=== PATIENT | male | born 1960 | race Caucasian/White ===

== ENCOUNTER → 2018-06-28 19:34 | Outpatient (CLI) | payer MEDICAID, SELFPAY ==
[2018-06-28 20:18] LABS: Basophils # 0.1 K/mm3 (0-0.2); Basophils % 0.8 % (0.1-2.0); Eosinophils # 0.1 K/mm3 (0.0-0.4); Eosinophils % 1.1 % (0.1-12.0); Hematocrit 51.5 % (42.0-52.0); Hemoglobin 17.1 g/dL (14.1-18.0); Lymphocytes # 1.8 K/mm3 (0.7-4.5); Lymphocytes % 20.8 % (10-50); Mean Corpuscular HGB Conc 33.2 g/dL (31.8-35.4); Mean Corpuscular Hemoglobin 30.1 pg (27.0-31.2); Mean Corpuscular Volume 90.5 fl (80-94); Mean Platelet Volume 9.7 fl (7.4-10.4); Monocytes # 0.5 K/mm3 (0.1-1.0); Monocytes % 5.7 % (1.7-9.3); Neutrophils # 6.3 K/mm3 (1.8-7.8); Neutrophils % 71.6 % (37.0-80.0); Platelet Count 187 K/mm3 (142-424); Red Blood Count 5.69 M/mm3 (4.60-6.20); Red Cell Distribution Width 13.7 % (11.5-17.5); White Blood Count 8.8 K/mm3 (4.8-10.8)
[2018-06-28 20:39] LABS: Alanine Aminotransferase 45 U/L (12-78); Albumin Level 4.5 gm/dL (3.4-5.0); Albumin/Globulin Ratio 1.3 (1.1-1.8); Alkaline Phosphatase 95 U/L (46-116); Anion Gap 13.1 mEq/L (5-15); Aspartate Amino Transferase 16 U/L (15-37); Bilirubin,Total 0.5 mg/dL (0.2-1.0); Blood Urea Nitrogen 16 mg/dL (7-18); Calcium 9.3 mg/dL (8.5-10.1); Carbon Dioxide 28 mmol/L (21.0-32.0); Chloride 104 mmol/L (98-107); Chol/HDL Ratio 5.3 (1-3.5); Cholesterol 184 mg/dL (140-200); Creatinine,Serum 0.91 mg/dL (0.70-1.30); Estimated Glomerular Filt Rate 86 ml/min (>60); GFR (African American) 104 ML/MIN (>60); Globulin 3.6 gm/dl (1.3-3.2); Glucose 150 mg/dL (74-106); HDL Cholesterol 35 mg/dL (27-67); LDL Cholesterol 121 mg/dL (0-130); Potassium 4.1 mmoL/L (3.5-5.1); Sodium 141 mmol/L (136-145); T4 (Thyroxine) 9.1 ug/dl (4.7-13.3); Thyroid Stimulating Hormone 1.61 uIU/ml (0.358-3.740); Total Protein,Serum 8.1 gm/dL (6.4-8.2); Triglycerides 140 mg/dL (30-200); VLDL Cholesterol 28 mg/dL (0-40)
[2018-06-30 12:27] LABS: PSA, Free 0.09 ng/mL; Prostate Specific Ag 0.3 ng/mL (0.0-4.0); Vitamin D 25 Hydroxy 14.7 ng/mL (30.0-100.0)
== END ==
PROVIDERS: Visit Provider Physician Assistant
DX: Z00.00 Encounter for general adult medical examination without abnormal findings (principal); R73.9 Hyperglycemia, unspecified
CPT/HCPCS: 80053; 80061; 82652; 83036; 84153; 84154; 84436; 84443; 85025

== ENCOUNTER → 2018-07-25 09:32 | Outpatient (CLI) | payer MEDICAID, SELFPAY | PROVIDERS: PCP Physician Assistant; Visit Provider Physician Assistant | DX: Z71.3 Dietary counseling and surveillance (principal); E11.9 Type 2 diabetes mellitus without complications | CPT/HCPCS: 97802 ==

== ENCOUNTER → 2019-01-04 09:11 | Outpatient (CLI) | payer MEDICAID, SELFPAY ==
--- NOTE | 2019-01-04 09:19 | XR_ITS ---
PROCEDURE: XR ELBOW RT MIN 3V CLINICAL INDICATION: Right elbow pain COMPARISON: No exams were available for comparison FINDINGS: No fracture or dislocation. No lytic or blastic change. There is normal mineralization. Soft tissue calcification is present at both the lateral and medial epicondylar region and could be related to prior ligamentous injury. Enthesophyte is present at the olecranon process. There is some soft tissue prominence at that region as well Other findings:None. IMPRESSION: Soft tissue calcification at the medial and lateral epicondylar region which may be due to old ligamentous injury Prominent enthesophyte at the olecranon Dictated by: Darryl Thedoore MD 01/04/2019 10:22 Signed by: <Electronically signed by Darryl Theodore MD in [place]> 01/04/2019 10:22
[2019-01-04 13:56] LABS: Basophils # 0.1 K/mm3 (0-0.2); Basophils % 0.8 % (0.1-2.0); Eosinophils # 0.1 K/mm3 (0.0-0.4); Eosinophils % 1.9 % (0.1-12.0); Hematocrit 47.1 % (42.0-52.0); Hemoglobin 15.3 g/dL (14.1-18.0); Lymphocytes # 1.5 K/mm3 (0.7-4.5); Lymphocytes % 19.5 % (10-50); Mean Corpuscular HGB Conc 32.5 g/dL (31.8-35.4); Mean Corpuscular Hemoglobin 29.8 pg (27.0-31.2); Mean Corpuscular Volume 91.6 fl (80-94); Mean Platelet Volume 9.4 fl (7.4-10.4); Monocytes # 0.4 K/mm3 (0.1-1.0); Monocytes % 4.5 % (1.7-9.3); Neutrophils # 5.7 K/mm3 (1.8-7.8); Neutrophils % 73.2 % (37.0-80.0); Platelet Count 195 K/mm3 (142-424); Red Blood Count 5.14 M/mm3 (4.60-6.20); Red Cell Distribution Width 13.2 % (11.5-17.5); White Blood Count 7.7 K/mm3 (4.8-10.8)
[2019-01-04 14:16] LABS: Alanine Aminotransferase 40 U/L (12-78); Albumin Level 4.3 gm/dL (3.4-5.0); Albumin/Globulin Ratio 1.4 (1.1-1.8); Alkaline Phosphatase 100 U/L (46-116); Anion Gap 12.2 mEq/L (5-15); Aspartate Amino Transferase 19 U/L (15-37); Bilirubin,Total 0.4 mg/dL (0.2-1.0); Blood Urea Nitrogen 13 mg/dL (7-18); Calcium 9.1 mg/dL (8.5-10.1); Carbon Dioxide 26 mmol/L (21.0-32.0); Chloride 104 mmol/L (98-107); Chol/HDL Ratio 3.8 (1-3.5); Cholesterol 124 mg/dL (140-200); Creatinine,Serum 0.86 mg/dL (0.70-1.30); Estimated Glomerular Filt Rate 92 ml/min (>60); GFR (African American) 111 ML/MIN (>60); Glucose 251 mg/dL (74-106); HDL Cholesterol 33 mg/dL (27-67); LDL Cholesterol 71 mg/dL (0-130); Potassium 4.2 mmoL/L (3.5-5.1); Sodium 138 mmol/L (136-145); T4 (Thyroxine) 8.8 ug/dl (4.7-13.3); Thyroid Stimulating Hormone 1.14 uIU/ml (0.358-3.740); Total Protein,Serum 7.3 gm/dL (6.4-8.2); Triglycerides 100 mg/dL (30-200); VLDL Cholesterol 20 mg/dL (0-40)
[2019-01-04 15:37] LABS: Hemoglobin A1C 7.4 % (0.0-7.0)
[2019-01-05 09:51] LABS: Vitamin D 25 Hydroxy 26.4 ng/mL (30.0-100.0)
== END ==
PROVIDERS: PCP Physician Assistant; Visit Provider Physician Assistant
DX: M25.521 Pain in right elbow (principal); E11.9 Type 2 diabetes mellitus without complications; E55.9 Vitamin D deficiency, unspecified; Z79.84 Long term (current) use of oral hypoglycemic drugs
CPT/HCPCS: 73080; 80053; 80061; 82652; 83036; 84436; 84443; 85025

== ENCOUNTER → 2019-03-13 17:18 | Outpatient (CLI) | payer MEDICAID, SELFPAY | PROVIDERS: Visit Provider Physician Assistant | DX: E11.9 Type 2 diabetes mellitus without complications (principal); Z79.84 Long term (current) use of oral hypoglycemic drugs | CPT/HCPCS: 82043 ==

== ENCOUNTER → 2019-11-16 13:03 | Outpatient (CLI) | payer MEDICAID, SELFPAY ==
[2019-11-16 17:18] LABS: Creatinine,Urine Random 107 mg/dL (Not Estab.)
[2019-11-16 17:20] LABS: Microalbumin/Creatinine Ratio 16.6
== END ==
PROVIDERS: Visit Provider Family Medicine
DX: E11.9 Type 2 diabetes mellitus without complications (principal); Z79.84 Long term (current) use of oral hypoglycemic drugs
CPT/HCPCS: 82043; 82570; 83036

== ENCOUNTER → 2020-03-12 14:51 | Outpatient (CLI) | payer MEDICAID, SELFPAY ==
[2020-03-12 15:26] LABS: Basophils # 0.1 K/mm3 (0-0.2); Basophils % 0.7 % (0.1-2.0); Eosinophils # 0.1 K/mm3 (0.0-0.4); Eosinophils % 1.5 % (0.1-12.0); Hematocrit 44.7 % (42.0-52.0); Hemoglobin 15.3 g/dL (14.1-18.0); Lymphocytes # 1.9 K/mm3 (0.7-4.5); Lymphocytes % 22.2 % (10-50); Mean Corpuscular HGB Conc 34.3 g/dL (31.8-35.4); Mean Corpuscular Hemoglobin 31.2 pg (27.0-31.2); Mean Corpuscular Volume 91.1 fl (80-94); Mean Platelet Volume 9.8 fl (7.4-10.4); Monocytes # 0.5 K/mm3 (0.1-1.0); Monocytes % 6.1 % (1.7-9.3); Neutrophils # 5.9 K/mm3 (1.8-7.8); Neutrophils % 69.5 % (37.0-80.0); Platelet Count 202 K/mm3 (142-424); Red Blood Count 4.91 M/mm3 (4.60-6.20); Red Cell Distribution Width 13.6 % (11.5-17.5); White Blood Count 8.5 K/mm3 (4.8-10.8)
[2020-03-12 15:41] LABS: Hemoglobin A1C 6.4 % (4.0-6.0)
[2020-03-12 15:54] LABS: Alanine Aminotransferase 26 U/L (12-78); Albumin Level 4.8 g/dl (3.5-5.0); Albumin/Globulin Ratio 1.7 (1.1-1.8); Alkaline Phosphatase 93 U/L (38-126); Anion Gap 16.1 mEq/L (5-15); Aspartate Amino Transferase 27 U/L (17-59); Bilirubin,Total 0.5 mg/dl (0.2-1.3); Blood Urea Nitrogen 17 mg/dl (9-20); Calcium 9.7 mg/dl (8.4-10.2); Carbon Dioxide 24 mmol/L (22.0-30.0); Chloride 106 mmol/L (98-107); Chol/HDL Ratio 4.2 (1-3.5); Cholesterol 150 mg/dl (140-200); Estimated Glomerular Filt Rate 116 ml/min (>60); GFR (African American) 141 ML/MIN (>60); Globulin 2.8 g/dL (1.3-3.2); Glucose 125 mg/dl (74-100); HDL Cholesterol 36 mg/dl (40-60); Potassium 4.1 mmoL/L (3.5-5.1); Sodium 142 mmol/L (136-145); Total Protein,Serum 7.6 g/dl (6.3-8.2); Triglycerides 153 mg/dl (30-150); VLDL Cholesterol 31 mg/dL (0-40)
[2020-03-12 16:05] LABS: Direct LDL Cholesterol 94.25 mg/dL (100-129)
[2020-03-12 16:12] LABS: T4 (Thyroxine) 7.6 ug/dl (5.53-11.0)
[2020-03-12 16:26] LABS: Thyroid Stimulating Hormone 1.46 uIU/mL (0.465-4.68)
[2020-03-14 10:31] LABS: PSA, Free 0.11 ng/mL; Prostate Specific Ag 0.4 ng/mL (0.0-4.0)
== END ==
PROVIDERS: Visit Provider Physician Assistant
DX: E11.65 Type 2 diabetes mellitus with hyperglycemia (principal); E55.9 Vitamin D deficiency, unspecified; E78.5 Hyperlipidemia, unspecified; I10 Essential (primary) hypertension; Z79.84 Long term (current) use of oral hypoglycemic drugs
CPT/HCPCS: 80053; 80061; 83036; 84153; 84154; 84436; 84443; 85025

== ENCOUNTER → 2020-06-12 17:46 | Outpatient (CLI) | payer MEDICAID, SELFPAY ==
[2020-06-12 18:17] LABS: Basophils # 0.1 K/mm3 (0-0.2); Eosinophils # 0.1 K/mm3 (0.0-0.4); Hematocrit 47.5 % (42.0-52.0); Hemoglobin 15.5 g/dL (14.1-18.0); Lymphocytes # 1.5 K/mm3 (0.7-4.5); Lymphocytes % 22.4 % (10-50); Mean Corpuscular HGB Conc 32.6 g/dL (31.8-35.4); Mean Corpuscular Hemoglobin 29.4 pg (27.0-31.2); Mean Corpuscular Volume 90.4 fl (80-94); Mean Platelet Volume 9.4 fl (7.4-10.4); Monocytes # 0.7 K/mm3 (0.1-1.0); Monocytes % 10.8 % (1.7-9.3); Neutrophils # 4.3 K/mm3 (1.8-7.8); Neutrophils % 64.8 % (37.0-80.0); Platelet Count 182 K/mm3 (142-424); Red Blood Count 5.26 M/mm3 (4.60-6.20); Red Cell Distribution Width 12.9 % (11.5-17.5); White Blood Count 6.6 K/mm3 (4.8-10.8)
[2020-06-12 18:22] LABS: Alanine Aminotransferase 38 U/L (12-78); Albumin Level 5.1 g/dl (3.5-5.0); Albumin/Globulin Ratio 1.5 (1.1-1.8); Alkaline Phosphatase 96 U/L (38-126); Anion Gap 17.3 mEq/L (5-15); Aspartate Amino Transferase 35 U/L (17-59); Bilirubin,Total 0.5 mg/dl (0.2-1.3); Blood Urea Nitrogen 15 mg/dl (9-20); Calcium 9.9 mg/dl (8.4-10.2); Carbon Dioxide 26 mmol/L (22.0-30.0); Chloride 99 mmol/L (98-107); Chol/HDL Ratio 5.1 (1-3.5); Cholesterol 152 mg/dl (140-200); Estimated Glomerular Filt Rate 99 ml/min (>60); GFR (African American) 120 ML/MIN (>60); Globulin 3.3 g/dL (1.3-3.2); Glucose 262 mg/dl (74-100); HDL Cholesterol 30 mg/dl (40-60); Potassium 4.3 mmoL/L (3.5-5.1); Sodium 138 mmol/L (136-145); Total Protein,Serum 8.4 g/dl (6.3-8.2); Triglycerides 269 mg/dl (30-150); VLDL Cholesterol 54 mg/dL (0-40)
[2020-06-12 18:34] LABS: Direct LDL Cholesterol 90.76 mg/dL (100-129)
[2020-06-12 18:39] LABS: 25-OH Vitamin D, Total 41.6 ng/mL (30-100)
[2020-06-12 18:44] LABS: Hemoglobin A1C 7.4 % (4.0-6.0)
[2020-06-12 18:53] LABS: Thyroid Stimulating Hormone 1.18 uIU/mL (0.465-4.68)
== END ==
PROVIDERS: Visit Provider Physician Assistant
DX: E11.9 Type 2 diabetes mellitus without complications (principal); E55.9 Vitamin D deficiency, unspecified; I10 Essential (primary) hypertension; Z79.84 Long term (current) use of oral hypoglycemic drugs
CPT/HCPCS: 80053; 80061; 82043; 82306; 83036; 84439; 84443; 85025

== ENCOUNTER → 2020-07-19 09:13 | Outpatient (CLI) | payer MEDICAID, SELFPAY ==
[2020-07-19 09:16] LABS: Microscopic, Urine URINE MICROSCOPIC (MICROSCOPIC)
[2020-07-19 09:30] LABS: Basophils # 0.1 K/mm3 (0-0.2); Basophils % 0.7 % (0.1-2.0); Eosinophils # 0.2 K/mm3 (0.0-0.4); Hematocrit 45.1 % (42.0-52.0); Lymphocytes # 1.6 K/mm3 (0.7-4.5); Lymphocytes % 20.5 % (10-50); Mean Corpuscular HGB Conc 33.2 g/dL (31.8-35.4); Mean Corpuscular Hemoglobin 29.9 pg (27.0-31.2); Mean Corpuscular Volume 89.9 fl (80-94); Mean Platelet Volume 8.6 fl (7.4-10.4); Monocytes # 0.4 K/mm3 (0.1-1.0); Monocytes % 5.5 % (1.7-9.3); Neutrophils # 5.5 K/mm3 (1.8-7.8); Neutrophils % 71.4 % (37.0-80.0); Platelet Count 159 K/mm3 (142-424); Red Blood Count 5.02 M/mm3 (4.60-6.20); Red Cell Distribution Width 13.6 % (11.5-17.5); White Blood Count 7.8 K/mm3 (4.8-10.8)
[2020-07-19 10:25] LABS: Appearance,Urine CLEAR (Clear); Bilirubin,Urine Negative (Negative); Blood, Urine Negative (Negative); Color,Urine YELLOW (Yellow); Glucose,Urine (UA) 2+ (Negative); Ketones,Urine Negative (Negative); Leukocyte Esterase,Urine Negative (Negative); Nitrate,Urine Negative (Negative); PH,Urine 5.5 (5.0-8.5); Protein,Urine Negative (Negative); Specific Gravity, Urine >= 1.030 (1.005-1.030); Urobilinogen,Urine 0.2 EU/dl (0.2)
[2020-07-19 10:35] LABS: Creatinine,Urine Random 177 mg/dL (Not Estab.)
[2020-07-19 10:48] LABS: Albumin Level 4.7 g/dl (3.5-5.0); Anion Gap 12.7 mEq/L (5-15); Blood Urea Nitrogen 20 mg/dl (9-20); Calcium 9.5 mg/dl (8.4-10.2); Carbon Dioxide 26 mmol/L (22.0-30.0); Chloride 105 mmol/L (98-107); Estimated Glomerular Filt Rate 99 ml/min (>60); GFR (African American) 120 ML/MIN (>60); Glucose 154 mg/dl (74-100); Phosphorous 2.9 mg/dl (2.5-4.5); Potassium 4.7 mmoL/L (3.5-5.1); Sodium 139 mmol/L (136-145)
[2020-07-19 10:59] LABS: Intact Parathyroid Hormone 26.6 pg/mL (7.5-53.5)
[2020-07-19 11:05] LABS: 25-OH Vitamin D, Total 50.1 ng/mL (30-100)
== END ==
PROVIDERS: Visit Provider Internal Medicine Nephrology
DX: R80.9 Proteinuria, unspecified (principal); Z68.26 Body mass index [BMI] 26.0-26.9, adult
CPT/HCPCS: 36415; 80069; 81001; 82306; 82570; 83970; 84155; 85025

== ENCOUNTER → 2021-02-13 12:25 | Outpatient (CLI) | payer MEDICAID, SELFPAY ==
[2021-02-13 13:34] LABS: Creatinine,Urine Random 161 mg/dL (Not Estab.)
[2021-02-13 13:37] LABS: Microalbumin/Creatinine Ratio 11.3
[2021-02-13 13:41] LABS: Albumin Level 4.4 g/dl (3.5-5.0); Anion Gap 11.1 mEq/L (5-15); Blood Urea Nitrogen 16 mg/dl (9-20); Calcium 9.1 mg/dl (8.4-10.2); Carbon Dioxide 26 mmol/L (22.0-30.0); Chloride 107 mmol/L (98-107); Estimated Glomerular Filt Rate 138 ml/min (>60); GFR (African American) 167 ML/MIN (>60); Glucose 178 mg/dl (74-100); Potassium 4.1 mmoL/L (3.5-5.1); Sodium 140 mmol/L (136-145)
== END ==
PROVIDERS: Visit Provider Internal Medicine Nephrology
DX: R80.9 Proteinuria, unspecified (principal)
CPT/HCPCS: 36415; 80069; 82043; 82570

== ENCOUNTER → 2021-03-02 14:33 | Outpatient (POV) | payer MEDICAID, SELFPAY | PROVIDERS: Visit Provider Internal Medicine Nephrology | DX: Z00.00 Encounter for general adult medical examination without abnormal findings (principal) ==

== ENCOUNTER → 2021-04-29 12:54 | Outpatient (CLI) | payer MEDICAID, SELFPAY ==
--- NOTE | 2021-04-29 12:58 | CT_ITS ---
PROCEDURE: CT HEAD/BRAIN WO CON CLINICAL INDICATION: new onset headaches COMPARISON: No exams were available for comparison TECHNIQUE: Axial images obtained. All CT scans at the facility use one or more dose reduction, viz: automated exposure control, ma/kV adjustment per patient size (including targeted exams where dose is matched to indication, i.e. head), or iterative reconstruction technique. FINDINGS: No midline shift, mass effect, intracranial hemorrhage, hydrocephalus, or extra-axial fluid collection is evident. The calvarium has an unremarkable appearance. No mastoid effusion. Minimal mucosal thickening ethmoid sinuses. No sinus air-fluid level. Mild calcification of the vertebral arteries. IMPRESSION: No acute intracranial finding Dictated by: Darryl Theodore MD 04/29/2021 16:37 Darryl Theodore MD in [place] 04/29/2021 16:37
== END ==
PROVIDERS: PCP Physician Assistant; Visit Provider Physician Assistant
DX: R51.9 Headache, unspecified (principal)
CPT/HCPCS: 70450

== ENCOUNTER → 2022-03-30 13:40 | Outpatient (CLI) | payer MEDICAID, SELFPAY ==
[2022-03-30 20:08] LABS: Basophils # 0.1 K/mm3 (0-0.2); Basophils % 0.7 % (0.1-2.0); Eosinophils # 0.1 K/mm3 (0.0-0.4); Eosinophils % 0.7 % (0.1-12.0); Hematocrit 49.3 % (42.0-52.0); Hemoglobin 16.4 g/dL (14.1-18.0); Lymphocytes # 1.8 K/mm3 (0.7-4.5); Lymphocytes % 16.5 % (10-50); Mean Corpuscular HGB Conc 33.3 g/dL (31.8-35.4); Mean Corpuscular Hemoglobin 31.4 pg (27.0-31.2); Mean Corpuscular Volume 94.3 fl (80-94); Mean Platelet Volume 10.2 fl (7.4-10.4); Monocytes # 0.5 K/mm3 (0.1-1.0); Monocytes % 4.6 % (1.7-9.3); Neutrophils # 8.3 K/mm3 (1.8-7.8); Neutrophils % 77.5 % (37.0-80.0); Platelet Count 206 K/mm3 (142-424); Red Blood Count 5.23 M/mm3 (4.60-6.20); Red Cell Distribution Width 14.1 % (11.5-17.5); White Blood Count 10.7 K/mm3 (4.8-10.8)
[2022-03-30 20:18] LABS: Alanine Aminotransferase 37 U/L (12-78); Albumin Level 4.8 g/dl (3.5-5.0); Albumin/Globulin Ratio 1.8 (1.1-1.8); Alkaline Phosphatase 111 U/L (38-126); Aspartate Amino Transferase 29 U/L (17-59); Bilirubin,Total 0.6 mg/dl (0.2-1.3); Blood Urea Nitrogen 22 mg/dl (9-20); Calcium 10.3 mg/dl (8.4-10.2); Carbon Dioxide 24 mmol/L (22.0-30.0); Chloride 99 mmol/L (98-107); Chol/HDL Ratio 5.2 (1-3.5); Cholesterol 166 mg/dl (140-200); Estimated Glomerular Filt Rate 115 ml/min (>60); GFR (African American) 140 ML/MIN (>60); Globulin 2.7 g/dL (1.3-3.2); Glucose 233 mg/dl (74-100); HDL Cholesterol 32 mg/dl (40-60); Sodium 139 mmol/L (136-145); Total Protein,Serum 7.5 g/dl (6.3-8.2); Triglycerides 225 mg/dl (30-150); VLDL Cholesterol 45 mg/dL (0-40)
[2022-03-30 20:30] LABS: Direct LDL Cholesterol 94.59 mg/dL (100-129)
[2022-03-30 20:36] LABS: 25-OH Vitamin D, Total 43.5 ng/mL (30-100)
[2022-03-30 20:50] LABS: Prostate Specific Ag Screen 0.4 ng/ml (0.0-4.0); Thyroid Stimulating Hormone 1.65 uIU/mL (0.465-4.68)
== END ==
PROVIDERS: PCP Student in an Organized Health Care Education/Training Program; Visit Provider Student in an Organized Health Care Education/Training Program
DX: E11.65 Type 2 diabetes mellitus with hyperglycemia (principal); R53.83 Other fatigue; I10 Essential (primary) hypertension; Z12.5 Encounter for screening for malignant neoplasm of prostate; Z79.84 Long term (current) use of oral hypoglycemic drugs
CPT/HCPCS: 80053; 80061; 82306; 83036; 84443; 85025; G0103

== ENCOUNTER → 2022-04-13 14:20 | Outpatient (CLI) | payer MEDICAID, SELFPAY ==
[2022-04-13 15:26] VITALS: BMI 27.1
== END ==
PROVIDERS: PCP Physician Assistant; Visit Provider Student in an Organized Health Care Education/Training Program
DX: Z71.3 Dietary counseling and surveillance (principal); E11.9 Type 2 diabetes mellitus without complications
CPT/HCPCS: 97802

== ENCOUNTER → 2022-08-10 14:11 | Outpatient (CLI) | payer MEDICAID, SELFPAY ==
[2022-08-10 19:57] LABS: Basophils # 0.1 K/mm3 (0-0.2); Basophils % 0.7 % (0.1-2.0); Eosinophils # 0.1 K/mm3 (0.0-0.4); Eosinophils % 0.9 % (0.1-12.0); Hematocrit 46.7 % (42.0-52.0); Hemoglobin 15.1 g/dL (14.1-18.0); Lymphocytes # 1.4 K/mm3 (0.7-4.5); Lymphocytes % 13.8 % (10-50); Mean Corpuscular HGB Conc 32.4 g/dL (31.8-35.4); Mean Corpuscular Hemoglobin 30.9 pg (27.0-31.2); Mean Corpuscular Volume 95.4 fl (80-94); Mean Platelet Volume 10.6 fl (7.4-10.4); Monocytes # 0.5 K/mm3 (0.1-1.0); Monocytes % 5.2 % (1.7-9.3); Neutrophils # 7.9 K/mm3 (1.8-7.8); Neutrophils % 79.4 % (37.0-80.0); Platelet Count 248 K/mm3 (142-424); Red Cell Distribution Width 13.9 % (11.5-17.5); White Blood Count 9.9 K/mm3 (4.8-10.8)
[2022-08-10 20:01] LABS: Alanine Aminotransferase 43 U/L (12-78); Albumin Level 4.8 g/dl (3.5-5.0); Albumin/Globulin Ratio 1.8 (1.1-1.8); Alkaline Phosphatase 83 U/L (38-126); Anion Gap 15.3 mEq/L (5-15); Aspartate Amino Transferase 46 U/L (17-59); Bilirubin,Total 0.6 mg/dl (0.2-1.3); Blood Urea Nitrogen 17 mg/dl (9-20); Calcium 9.5 mg/dl (8.4-10.2); Carbon Dioxide 24 mmol/L (22.0-30.0); Chloride 104 mmol/L (98-107); Chol/HDL Ratio 4.4 (1-3.5); Cholesterol 141 mg/dl (140-200); Estimated Glomerular Filt Rate 99 ml/min (>60); GFR (African American) 119 ML/MIN (>60); Globulin 2.6 g/dL (1.3-3.2); Glucose 196 mg/dl (74-100); HDL Cholesterol 32 mg/dl (40-60); Potassium 4.3 mmoL/L (3.5-5.1); Sodium 139 mmol/L (136-145); Total Protein,Serum 7.4 g/dl (6.3-8.2); Triglycerides 243 mg/dl (30-150); VLDL Cholesterol 49 mg/dL (0-40)
[2022-08-10 20:11] LABS: Creatine Kinase MB 1.5 ng/ml (0.0-2.03)
[2022-08-10 20:14] LABS: Direct LDL Cholesterol 84.53 mg/dL (100-129)
[2022-08-10 20:18] LABS: 25-OH Vitamin D, Total 47.2 ng/mL (30-100)
[2022-08-10 20:33] LABS: Thyroid Stimulating Hormone 1.31 uIU/mL (0.465-4.68)
[2022-08-10 20:36] LABS: Ferritin 227 ng/ml (17.9-464)
[2022-08-10 20:56] LABS: Vitamin B12 183 pg/mL (239-931)
[2022-08-11 08:58] LABS: Hemoglobin A1C 7.8 % (4.0-6.0)
== END ==
PROVIDERS: PCP Physician Assistant; Visit Provider Physician Assistant
DX: E11.9 Type 2 diabetes mellitus without complications (principal); Z79.84 Long term (current) use of oral hypoglycemic drugs
CPT/HCPCS: 80053; 80061; 82306; 82553; 82607; 82728; 83036; 84443; 85025

== ENCOUNTER → 2022-09-17 12:46 | Outpatient (CLI) | payer MEDICAID, SELFPAY ==
--- NOTE | 2022-09-17 12:47 | MR_ITS ---
FINAL REPORT CLINICAL HISTORY: left lumbar radiculopathy lower back pain with left leg numbness , burning, and tingling x 6 months COMPARISON: None FINDINGS: Multiplanar MR imaging of the lumbar spine was performed without contrast. On the sagittal T2-weighted images, there is abnormal decreased signal at L4-5. The vertebrae are of normal height. The vertebral alignment is normal. L1-2: There is no significant canal stenosis or neural foraminal narrowing. L2-3: There is no significant canal stenosis or neural foraminal narrowing. L3-4: There is no significant canal stenosis or neural foraminal narrowing. L4-5: Mild diffuse disc bulge. Endplate hypertrophy. Mild spinal canal compromise. Moderate to high-grade left and moderate right neural foraminal narrowing. L5-S1: There is no significant canal stenosis or neural foraminal narrowing. IMPRESSION: Diffuse disc bulge at L4-5 with moderate to high-grade left neural foraminal compromise. Reviewed, Interpreted and Dictated by Mark Phillips MD Transcribed by Cori Cruz Authenticated and [facility]
== END ==
PROVIDERS: PCP Physician Assistant; Visit Provider Physician Assistant
DX: M54.50 Low back pain, unspecified (principal); M54.16 Radiculopathy, lumbar region
CPT/HCPCS: 72148; 76376

== ENCOUNTER 2022-09-29 08:30 | Emergency (ER) | payer MEDICAID, SELFPAY ==
[2022-09-29 08:31] VITALS: BP 145/92; PULSE 76; RESP 17; TEMP 37.2; O2SAT 97; BMI 24.3
--- NOTE | 2022-09-29 08:51 | EXP.UTC ---
Discharge Plan Disposition Patient Disposition: Home, Self-Care Condition: Good Prescriptions Prescriptions: New methylprednisolone [Medrol (Daljit)] 4 mg tablets,dose pack See Rx Instructions .Route .COMPLEX 6 Days Qty: 21 0RF Rx Instructions: taper pack; No Action Ubrelvy 50 mg tablet 50 mg PO ONCE PRN (Reason: migraine headache) Qty: 10 0RF Rx Instructions: Once at onset of headache methylprednisolone [Medrol (Daljit)] 4 mg tablets,dose pack 4 mg PO PER PKG DIR 6 Days Qty: 21 0RF (DME) blood-glucose meter Kit 0 unit .Route .MEDSUPPLY Qty: 1 0RF Rx Instructions: As directed (DME) Acti-Markell Lancets 23 gauge misc See Rx Instructions .ROUTE .MEDSUPPLY Qty: 100 2RF Rx Instructions: As directed losartan 50 mg tablet 50 mg PO DAILY Qty: 90 3RF (DME) OneTouch Ultra Test Strip See Rx Instructions .ROUTE .COMPLEX Qty: 100 3RF Dose Instruction: USE STRIP TO CHECK GLUCOSE TWICE DAILY Rx Instructions: USE STRIP TO CHECK GLUCOSE TWICE DAILY metformin 1,000 mg tablet extended release 24 hr 1,000 mg PO BID Qty: 90 3RF atorvastatin 10 mg tablet See Rx Instructions .ROUTE .COMPLEX Qty: 90 0RF Dose Instruction: TAKE 1 TABLET BY MOUTH ONCE DAILY AT BEDTIME FOR CHOLESTEROL Rx Instructions: TAKE 1 TABLET BY MOUTH ONCE DAILY AT BEDTIME FOR CHOLESTEROL omeprazole 20 mg capsule,delayed release(DR/EC) See Rx Instructions .ROUTE .COMPLEX Qty: 30 0RF Dose Instruction: Take 1 capsule by mouth once daily Rx Instructions: Take 1 capsule by mouth once daily amitriptyline 25 mg tablet See Rx Instructions .ROUTE .COMPLEX Qty: 30 2RF Dose Instruction: TAKE 1 TABLET BY MOUTH ONCE DAILY AT BEDTIME Rx Instructions: TAKE 1 TABLET BY MOUTH ONCE DAILY AT BEDTIME aspirin 81 mg tablet,delayed release (DR/EC) See Rx Instructions .ROUTE .COMPLEX Qty: 90 0RF Dose Instruction: TAKE 1 TABLET BY MOUTH ONCE DAILY FOR PREVENTATIVE Rx Instructions: TAKE 1 TABLET BY MOUTH ONCE DAILY FOR PREVENTATIVE cholecalciferol (vitamin D3) 25 mcg (1,000 unit) capsule See Rx Instructions .ROUTE .COMPLEX Qty: 30 2RF Dose Instruction: Take 1 capsule by mouth once daily Rx Instructions: Take 1 capsule by mouth once daily cyanocobalamin (vitamin B-12) 1,000 mcg/mL solution 1,000 mcg IM QMONTH Qty: 100 2RF Rx Instructions: Pt to inject 1ml daily x7 days. Pt to inject 1ml weekly x4 weeks. Pt to inject 1ml monthly. (DME) BD Integra Syringe 3 mL 25 gauge x 5/8 syringe See Rx Instructions .ROUTE .MEDSUPPLY Qty: 100 1RF Rx Instructions: To use for B-12 injection Januvia 100 mg tablet 100 mg PO DAILY Qty: 90 3RF glipizide 5 mg tablet extended release 24hr See Rx Instructions .ROUTE .COMPLEX Qty: 60 0RF Dose Instruction: Take 2 tablets by mouth once daily Rx Instructions: Take 2 tablets by mouth once daily ergocalciferol (vitamin D2) 1,250 mcg (50,000 unit) capsule See Rx Instructions .ROUTE .COMPLEX Qty: 14 0RF Dose Instruction: Take 1 capsule by mouth once a week Rx Instructions: Take 1 capsule by mouth once a week tamsulosin 0.4 mg capsule See Rx Instructions .ROUTE .COMPLEX Qty: 60 0RF Dose Instruction: TAKE 1 CAPSULE BY MOUTH TWICE DAILY FOR PROSTATE Rx Instructions: TAKE 1 CAPSULE BY MOUTH TWICE DAILY FOR PROSTATE (DME) blood sugar diagnostic 1 EACH strip 0 % .Route .MEDSUPPLY Rx Instructions: As directed Referrals Follow up/Referrals: Sophia Cuadra PA [Primary Care Provider] - See instructions Activity Restrictions/Add. Instructions Additional Instructions/Restrictions: Take medrol as prescribed Follow up with your Family Doctor if no improvement or any worsening of symptoms Return if needed Straight to ER if any life threatening symptoms Clinical Impressions Clinical Impressio
[2022-09-29 09:04] VITALS: BP 145/92; PULSE 73; RESP 17; TEMP 37.2
== END 2022-09-29 09:07 | disposition home or self-care (01) ==
PROVIDERS: Emergency Provider Nurse Practitioner; PCP Physician Assistant
DX: M54.32 Sciatica, left side (principal); E11.9 Type 2 diabetes mellitus without complications; I10 Essential (primary) hypertension; Z79.84 Long term (current) use of oral hypoglycemic drugs
CPT/HCPCS: 96372; 99204; 99212; G0463

== ENCOUNTER → 2022-10-21 10:38 | Outpatient (POV) | payer MEDICAID, SELFPAY ==
--- NOTE | 2022-10-21 10:52 | EXP.PAIN.OV ---
HPI Data of Consult Patient: new to practice Consult date: 10/21/22 Requesting Physician: Fozia Patterson APRN Primary Care Provider: EDU Blankenship Consult Narrative Reason for consult: Low back pain, left leg pain History of present illness: Mr. Otto is a 62 year old male who presents today as a new patient. He is a referral from Dr. Riley's office. Today he rates his pain a 7 out of 10. He states his pain is all in his low back with radiating symptoms into his left lower extremity. He does describe this as a aching, throbbing, sharp sensation that is worse with increased activity. He does state this is a severe pain that interferes with his ability to perform activities of daily living such as cooking and cleaning. He states that he also has numbness and tingling into his left extremity. Patient states this has been going on for over 7 months. Patient denies any specific trauma or injury that initially led to this pain symptoms. He states he does work and lifts items on a daily basis and may be related to something he has done there. Patient has tried [id number] medications such as Tylenol and ibuprofen along with heat and ice and topicals with minimal improvement. He has had a steroid injection from urgent care with minimal improvement. Patient is currently in physical therapy and states this has provided some improvement however he continues to have constant pain. Patient denies any surgery history. He is currently prescribed Flexeril 5 mg twice daily and states this does help some. He is not on any scheduled medications. His Markus is [phone]. Has been reviewed and appropriate. CC: Fozia Patterson APRN [facility] Disclaimer: The information contained in this section may have been updated after the patient was seen, as this information can be updated by other users. Medical History Diabetes Hypertension Social History Smoking Status: Never smoker alcohol intake: current substance use type: denies use current occupational status: employed Travel in the last 8 weeks: None caffeine: Yes Review of Systems Review of Systems Review of systems:: pertinent systems reviewed and negative unless documented below Review of systems (narrative): Review of Systems: General: No recent weight changes, no fever, no sleep disturbances Respiratory: No cough, no shortness of air, no recurring pulmonary infections Cardiovascular/peripheral vascular: No chest pain, no palpitations, no edema, no shortness of breath Gastrointestinal: No new onset incontinence, normal bowel movements reported Genitourinary: No new onset incontinence Musculoskeletal: Low back pain, left leg pain Psychiatric: [Normal mood/affect] Neurological: [Denies weakness in extremities], [denies balance issues] Meds Home Medications and Allergies Home Medications Medication Instructions Recorded Confirmed Type blood sugar diagnostic 10/05/18 10/15/22 History blood-glucose meter #1 ea 07/24/20 10/15/22 Rx lancets 23 gauge (Acti-Markell #100 ea 06/03/21 10/15/22 Rx Lancets) ubrogepant 50 mg tablet (Ubrelvy) 50 mg PO ONCE PRN migraine 07/01/21 10/15/22 Rx headache #10 tabs losartan 50 mg tablet 50 mg PO DAILY #90 tabs 10/23/21 10/15/22 Rx blood sugar diagnostic (OneTouch #100 ea 12/04/21 10/15/22 Rx Ultra Test strips) metformin 1,000 mg tablet,extended 1,000 mg PO BID #90 tabs 03/31/22 10/15/22 Rx release 24hr atorvastatin 10 mg tablet See Rx Instructions .Route 05/11/22 10/15/22 Rx .COMPLEX #90 tabs aspirin 81 mg tablet,delayed See Rx Instructions .Route 07/26/22 10/15/22 Rx release .COMPLEX #90 tabs cholecalciferol (vitamin D3) 25 See Rx Instructions .Route 07/28/22 10/15/22 Rx mcg (1,000 unit) capsule .COMPLEX #30 caps cyanocobalamin (vitamin B-12) 1,000 mcg IM QMONTH Vitamin B-12 08/27/22 10/15/22 Rx 1,000 mcg/mL i
[2022-10-21 11:21] VITALS: BP 141/84; PULSE 100; RESP 18; O2SAT 97; BMI 25.7
== END ==
PROVIDERS: PCP Physician Assistant; Visit Provider Nurse Practitioner Family
DX: M51.16 Intervertebral disc disorders with radiculopathy, lumbar region (principal); M79.605 Pain in left leg; M48.00 Spinal stenosis, site unspecified
CPT/HCPCS: 99202; G0463

== ENCOUNTER → 2022-11-10 12:35 | Outpatient (POV) | payer MEDICAID, SELFPAY ==
--- NOTE | 2022-11-10 13:07 | A.OFFVIS_ITS ---
[facility] Pain Management SOAP Note Subjective:: Patient is a pleasant 62-year-old male who presents today for insurance denial of left transforaminal epidural steroid injection. We are currently treating the patient for degenerative disc disease of lumbar spine with lumbar radiculopathy symptoms, spinal stenosis, low back pain, left leg pain. Today he rates his pain a 4 out of 10. Patient denies any new trauma or injury. Patient denies any change to location or type of pain he experiences. He states he continues to have low back pain that radiates down into his left leg. He is still currently in physical therapy and has gone 3 weeks at this point. Patient at our last visit was sent for a neurosurgery referral and he states he has been to see Dr. Baer and at this time is not recommending surgery. Patient is currently managed with Flexeril 5 mg twice a day. Patient is not on any scheduled medications. His Markus is [phone]. Its been reviewed and appropriate. Review of Systems: General: No recent weight changes, no fever, no sleep disturbances Respiratory: No cough, no shortness of air, no recurring pulmonary infections Cardiovascular/peripheral vascular: No chest pain, no palpitations, no edema, no shortness of breath Gastrointestinal: No new onset incontinence, normal bowel movements reported Genitourinary: No new onset incontinence Musculoskeletal: Low back pain, left leg pain Psychiatric: [Normal mood/affect] Neurological: [Denies weakness in extremities], [denies balance issues] Objective:: Physical Exam: General: Alert and oriented x3, no acute distress, pleasant and cooperative Lungs: Respirations even and unlabored, symmetrical chest expansion Eyes: PERRL Musculoskeletal: Flexion and extension of lumbar [spine] somewhat guarded secondary to pain, [antalgic gait noted] Neurological: Speech clear, no gross sensory deficit Assessment:: Degenerative disc disease of lumbar spine with lumbar radiculopathy symptoms, spinal stenosis, low back pain, left leg pain Plan:: Patient continues to have significant pain in his low back with radiating symptoms to his left leg. Patient was denied by insurance for lack of having physical therapy for approximately 6 weeks. Patient is currently in physical therapy and has been going for approximately 3 weeks. Patient will return to clinic in 1 month for reevaluation and at that time we will plan to submit for left transforaminal epidural steroid injection of L4-L5 and L5-S1. Patient has been instructed to contact the clinic with any concerns before the next appointment. Dr. Olivares has reviewed this note and agrees with this plan of care. This note was dictated using voice recognition software and make contain errors or omissions. [facility] Disclaimer: The information contained in this section may have been updated after the patient was seen, as this information can be updated by other users. Medical History Diabetes Hypertension Social History (Updated 10/21/22 @ 11:23 by Mary Adams RN) Smoking Status: Never smoker alcohol intake: current substance use type: denies use current occupational status: employed Travel in the last 8 weeks: None caffeine: Yes
[2022-11-10 13:19] VITALS: BP 122/86; PULSE 119; RESP 20; O2SAT 97; BMI 26.0
== END ==
PROVIDERS: PCP Physician Assistant; Visit Provider Nurse Practitioner Family
DX: M51.16 Intervertebral disc disorders with radiculopathy, lumbar region (principal); M48.061 Spinal stenosis, lumbar region without neurogenic claudication; M54.50 Low back pain, unspecified; M79.605 Pain in left leg
CPT/HCPCS: 99212; G0463

== ENCOUNTER 2022-11-17 08:00 | Outpatient (RCR) | payer MEDICAID, SELFPAY ==
--- NOTE | 2022-10-04 11:04 | HMH.PTOPEV ---
PT Outpatient Evaluation Rehab PT Outpatient Evaluation Start: 10/04/22 10:11 Freq: Status: Active Protocol: Document 10/04/22 10:13 JEFRY (Rec: 10/04/22 11:03 [email or web address] [id number]) E-signed By Lucinda Perez, PT Outpatient Therapy Subjective History Subjective History Pt presents to the PT clinic with reports of low back and L sided leg pain for 7-8 months . Pt reports no specific incident when the pain began. Pt reports he had a NCS performed about a month ago and a MRI performed 2 weeks ago. Pt reports that the MRI revealed he had a bulging disc in his low back. Pt reports he had an injection into his L hip that relieved the pain for 2-3 days. Pt reports the pain in his back and leg is constant. Pt reports that the pain is worse in the morning. Pt reports his left leg often gives out on his while he is walking. Pt reports he works for [employer] where he is up on his feet a lot. Pt reports that he feels best when laying on his belly or laying reclined in his recliner. Pt reports that he feels the worst when laying directly on his L side. PMH: diabetes, HTN Chief Complaint Pain,Gives out/Unstable, Paresthesia,Weakness Symptom Type Ache,Sharp,Burning,Numbness, Tingling,Shooting Symptoms Relieved By Rest/Positioning,OTC Meds Symptoms Aggravated By Sitting,Standing,Bending/ Stooping,Physical Activity, Twisting,Walking,Lifting Prior Functional Limitations None Current Functional Limitations Lifting,Desk Work/Reading, Driving,Sleeping,Standing, Sitting,Squatting,Recreation Activity,Walking,Stairs, Balance,Bending/Stooping Symptom Description Constant but Variable Level of pain today (0-10) 4 Pain scale - at its best (0-10) 0 Pain scale - at its worst (0-10) 9 Lumbopelvic Eval Posture Thoracic Spine Posture Standing Position Increased
== END 2022-11-17 08:05 | disposition home or self-care (01) ==
LOC: PT 08:00
PROVIDERS: Visit Provider Emergency Medicine
DX: M51.36 Other intervertebral disc degeneration, lumbar region (principal)
CPT/HCPCS: 97010; 97012; 97014; 97110; 97140; 97163; 97530; G0283

== ENCOUNTER → 2023-03-18 13:58 | Outpatient (POV) | payer MEDICAID, SELFPAY ==
[2023-03-18 14:23] VITALS: BP 116/75; PULSE 112; RESP 18; O2SAT 93; BMI 26.4
--- NOTE | 2023-03-18 14:31 | EXP.PAIN.SOA ---
[facility] Pain Management SOAP Note Subjective:: Patient is a pleasant 62-year-old male who presents today for follow-up. We are currently treating the patient for degenerative disc disease of lumbar spine with lumbar radiculopathy symptoms, lumbar spinal stenosis, low back pain, left leg pain, chronic pain syndrome. Today he rates his pain a 6 out of 10. Patient denies any new trauma or injury since our last visit. He states he continues to have worsening pain in his low back that radiates down his entire left leg. Patient does describe this as an aching, throbbing sensation with numbness and tingling into his extremity. Patient does state the pain makes activities of daily living difficult such as cooking and cleaning or even simple ambulation. Patient does state that he has random weakness to where his left leg will give out while he is walking causing him to fall. From our last visit he has been to Dr. Baer who is neurosurgery and he is not recommending surgery at this time but wanting more conservative treatment such as injections. Patient has completed his physical therapy with more than 6 weeks of sessions with no additional change. Patient states that he continues to do the at home exercising and stretching techniques that they gave him during therapy however he is still having the same pains. Patient is currently on Flexeril 5 mg twice a day. He is requesting refills. His Markus has been reviewed and is appropriate. Review of Systems: General: No recent weight changes, no fever, no sleep disturbances Respiratory: No cough, no shortness of air, no recurring pulmonary infections Cardiovascular/peripheral vascular: No chest pain, no palpitations, no edema, no shortness of breath Gastrointestinal: No new onset incontinence, normal bowel movements reported Genitourinary: No new onset incontinence Musculoskeletal: Low back pain, left leg pain Psychiatric: [Normal mood/affect] Neurological: [Denies weakness in extremities], [denies balance issues] Objective:: Physical Exam: General: Alert and oriented x3, no acute distress, pleasant and cooperative Lungs: Respirations even and unlabored, symmetrical chest expansion Eyes: PERRL Musculoskeletal: Flexion and extension of lumbar [spine] somewhat guarded secondary to pain, [antalgic gait noted] positive left leg raise with decreased sensation to light touch and decreased reflexes Neurological: Speech clear, no gross sensory deficit Assessment:: Degenerative disc disease of lumbar spine with lumbar radiculopathy symptoms, lumbar spinal stenosis with neurogenic claudication symptoms, low back pain, left leg pain, chronic pain syndrome Plan:: Patient continues to experience significant pain in his low back with radiating symptoms down his entire left leg. I have discussed with the patient that he may benefit from a left transforaminal epidural steroid injection. Risk and benefits of this injection were explained to the patient and he would like to proceed forward with this plan of care. Patient is not on any blood thinners. Patient was previously submitted for this injection however was denied due to not having physical therapy for approximately 6 weeks. Patient has tried and failed conservative therapy such as oral medication, heat and ice, topicals, physical therapy for 6 weeks and continued home exercise and stretching techniques for longer than 12 weeks. Patient will be submitted for a left transforaminal epidural steroid injection L4-L5 and L5-S1. We will contact the patient once we have official approval for specific time and date. I will refill the patient's Flexeril 5 mg twice a day and provide a 1 month supply of this medication. Patient has been instructed to contact the clinic with any concerns before the next appointment. Dr. Olivares has reviewed this note and agrees with this plan of care. This note was dictated using voice recognition software and make contain errors or omissions. [facility] Discla
== END | disposition home or self-care (01) ==
PROVIDERS: PCP Physician Assistant; Visit Provider Nurse Practitioner Family
DX: M51.16 Intervertebral disc disorders with radiculopathy, lumbar region (principal); M48.062 Spinal stenosis, lumbar region with neurogenic claudication; M79.605 Pain in left leg; G89.4 Chronic pain syndrome
CPT/HCPCS: 99212; G0463

== ENCOUNTER 2023-06-22 22:02 | Outpatient (CLI) | payer MEDICAID, SELFPAY ==
[2023-06-22 18:11] LABS: Basophils # 0.1 K/mm3 (0-0.2); Basophils % 0.8 % (0.1-2.0); Eosinophils # 0.2 K/mm3 (0.0-0.4); Eosinophils % 1.7 % (0.1-12.0); Hematocrit 47.3 % (42.0-52.0); Hemoglobin 16.3 g/dL (14.1-18.0); Lymphocytes # 1.9 K/mm3 (0.7-4.5); Lymphocytes % 20.8 % (10-50); Mean Corpuscular HGB Conc 34.4 g/dL (31.8-35.4); Mean Corpuscular Hemoglobin 31.7 pg (27.0-31.2); Mean Corpuscular Volume 92.1 fl (80-94); Monocytes # 0.5 K/mm3 (0.1-1.0); Monocytes % 5.4 % (1.7-9.3); Neutrophils # 6.6 K/mm3 (1.8-7.8); Neutrophils % 71.4 % (37.0-80.0); Platelet Count 176 K/mm3 (142-424); Red Blood Count 5.14 M/mm3 (4.60-6.20); Red Cell Distribution Width 13.6 % (11.5-17.5); White Blood Count 9.3 K/mm3 (4.8-10.8)
[2023-06-22 18:19] LABS: Alanine Aminotransferase 38 U/L (12-78); Albumin Level 4.7 g/dl (3.5-5.0); Albumin/Globulin Ratio 1.7 (1.1-1.8); Alkaline Phosphatase 79 U/L (38-126); Anion Gap 17.9 mEq/L (5-15); Aspartate Amino Transferase 35 U/L (17-59); Bilirubin,Total 0.4 mg/dl (0.2-1.3); Blood Urea Nitrogen 13 mg/dl (9-20); Calcium 10.1 mg/dl (8.4-10.2); Carbon Dioxide 23 mmol/L (22.0-30.0); Chloride 103 mmol/L (98-107); Chol/HDL Ratio 5.2 (1-3.5); Cholesterol 134 mg/dl (140-200); Estimated Glomerular Filt Rate 98 ml/min (>60); GFR (African American) 119 ML/MIN (>60); Globulin 2.7 g/dL (1.3-3.2); Glucose 217 mg/dl (74-100); HDL Cholesterol 26 mg/dl (40-60); Potassium 3.9 mmoL/L (3.5-5.1); Sodium 140 mmol/L (136-145); Total Protein,Serum 7.4 g/dl (6.3-8.2); Triglycerides 270 mg/dl (30-150); VLDL Cholesterol 54 mg/dL (0-40)
[2023-06-22 18:23] LABS: Hemoglobin A1C 8.2 % (4.0-6.0)
[2023-06-22 18:31] LABS: Direct LDL Cholesterol 76.43 mg/dL (100-129)
[2023-06-22 18:38] LABS: 25-OH Vitamin D, Total 32.9 ng/mL (30-100)
[2023-06-22 18:51] LABS: Prostate Specific Ag Screen 0.3 ng/ml (0.0-4.0); Thyroid Stimulating Hormone 2.05 uIU/mL (0.465-4.68)
== END 2023-06-22 23:59 ==
LOC: LAB.DROPOF 22:02
PROVIDERS: PCP Physician Assistant; Visit Provider Physician Assistant
DX: E11.9 Type 2 diabetes mellitus without complications (principal); E55.9 Vitamin D deficiency, unspecified; I10 Essential (primary) hypertension; Z68.26 Body mass index [BMI] 26.0-26.9, adult; Z79.84 Long term (current) use of oral hypoglycemic drugs; Z12.5 Encounter for screening for malignant neoplasm of prostate
CPT/HCPCS: 80053; 80061; 82306; 83036; 84443; 85025; G0103